=== PATIENT | male | born 1965 | race Caucasian/White ===

== ENCOUNTER 2022-08-20 12:28 | Inpatient (IN) | payer OTHER ==
[2022-08-20 13:43] VITALS: BMI 18.1
[2022-08-20] MEDS ORDERED: chlordiazePOXIDE HCL 25 MG CAPSULE PO ONE (15:10)
[2022-08-20] MEDS ORDERED: ACETAMINOPHEN 325 MG TABLET (FP) PO PRN (15:27)
[2022-08-20] MEDS ORDERED: NICOTINE POLACRILEX 2 MG GUM BUC PRN (15:27)
[2022-08-20] MEDS ORDERED: guaiFENesin 600 MG TABLET.ER (FP) PO PRN (15:27)
[2022-08-20] MEDS ORDERED: DICYCLOMINE HCL 10 MG CAPSULE PO PRN (15:27)
[2022-08-20] MEDS ORDERED: POLYETHYLENE GLYCOL (HEALTHYLAX) 3350 17 GM PACKET PO PRN (15:27)
[2022-08-20] MEDS ORDERED: MAG HYDROX/AL HYDROX/SIMETH 30 ML UNIT-DOSE CUP PO PRN (15:27)
[2022-08-20] MEDS ORDERED: BISMUTH SUBSALICYLATE 262 MG/15 ML BTL PO PRN (15:27)
[2022-08-20] MEDS ORDERED: BENZONATATE 200 MG CAPSULE PO PRN (15:27)
[2022-08-20] MEDS ORDERED: BENZOCAINE/MENTHOL (CHLORASEPTIC ) LOZENGE MM PRN (15:27)
[2022-08-20] MEDS ORDERED: LOPERAMIDE HCL 2 MG CAPSULE PO PRN (15:27)
[2022-08-20] MEDS ORDERED: MAGNESIUM HYDROX 2400MG/30ML ORAL SUSPENSION 30 ML CUP PO PRN (15:27)
[2022-08-20] MEDS ORDERED: IBUPROFEN 400 MG TABLET (FP) PO PRN (15:27)
[2022-08-20] MEDS ORDERED: ONDANSETRON *ODT* 4 MG TABLET SL PRN (15:27)
[2022-08-20] MEDS ORDERED: P-EPHED 60MG/TRIPROLIDI 2.5MG TABLET PO PRN (15:27)
[2022-08-20] MEDS: METHOCARBAMOL 500 MG TABLET PO PRN (16:27)
[2022-08-20] MEDS ORDERED: METHOCARBAMOL 500 MG TABLET ONE (16:32)
[2022-08-20] MEDS: chlordiazePOXIDE HCL 25 MG CAPSULE PO SCH ×2 (17:07→22:06)
[2022-08-20] MEDS: RAMIPRIL 5 MG CAPSULE PO SCH (17:46)
[2022-08-20] MEDS: NICOTINE 10 MG CARTRIDGE (INHALER) IH PRN (19:26)
[2022-08-20] MEDS: THIAMINE HCL 100 MG TABLET (FP) PO SCH (22:06)
[2022-08-20] MEDS: MELATONIN 5 MG TABLETS PO PRN (22:07)
[2022-08-21] MEDS: chlordiazePOXIDE HCL 25 MG CAPSULE PO SCH ×4 (05:50→22:06)
[2022-08-21] MEDS ORDERED: ALBUTEROL SO4 0.083% IH SOL 2.5 MG/3 ML VIAL.NEB. NEB PRN (09:11)
[2022-08-21] MEDS: IBUPROFEN 600 MG TABLET (FP) PO PRN (10:12)
[2022-08-21] MEDS: hydrOXYzine PAMOATE 25 MG CAPSULE (FP) PO PRN ×2 (10:12→19:45)
[2022-08-21] MEDS: METHOCARBAMOL 500 MG TABLET PO PRN (10:12)
[2022-08-21] MEDS: BUDESONIDE/FORMETEROL FUMARATE 160/4.5 mcg INHALER IH SCH ×2 (10:12→22:06)
[2022-08-21] MEDS: RAMIPRIL 5 MG CAPSULE PO SCH (10:12)
[2022-08-21] MEDS: PRENATAL VITAMINS W/ FOLIC ACID TABLET (FP) PO SCH (10:12)
[2022-08-21] MEDS: NICOTINE 7 MG/24 HOURS TOPICAL PATCH TD PRN (10:21)
[2022-08-21 12:01] LABS: HEMATOCRIT 37.7 % (35.4-49); HEMOGLOBIN 13.2 GM/dL (11.7-16.9); MCHC 35.1 g/dl (32.0-35.9); MEAN CELL VOLUME 91.1 fl (80-96); MEAN PLT VOLUME 7.6 fl (7.5-11.1); PLATELET COUNT 275 10^3/uL (134-434); RBC 4.13 M/mm3 (4.00-5.60); RDW 13.5 % (11.9-15.9); WHITE BLOOD COUNT 8.5 K/mm3 (4.0-10.0)
[2022-08-21 12:03] LABS: POTASSIUM 4.1 mmol/L (3.5-5.1)
[2022-08-21 12:06] LABS: CALCIUM 9.3 mg/dL (8.5-10.1)
[2022-08-21 12:07] LABS: ALBUMIN 3.6 g/dl (3.4-5.0); BLOOD UREA NITROGEN 6.9 mg/dL (7-18)
[2022-08-21 12:10] LABS: CREATININE 0.5 mg/dL (0.55-1.3)
[2022-08-21 12:11] LABS: TOT PROT 7.1 g/dl (6.4-8.2)
[2022-08-21 12:12] LABS: BILIRUBIN,TOTAL 0.8 mg/dL (0.2-1)
[2022-08-21] MEDS: ALBUTEROL SO4 HFA INHALER IH PRN (15:49)
[2022-08-21] MEDS: NICOTINE 10 MG CARTRIDGE (INHALER) IH PRN (18:33)
[2022-08-21] MEDS: chlordiazePOXIDE HCL 25 MG CAPSULE PO PRN (19:45)
[2022-08-21] MEDS: MONTELUKAST NA 10 MG TABLET PO SCH (22:05)
[2022-08-21] MEDS: THIAMINE HCL 100 MG TABLET (FP) PO SCH (22:05)
[2022-08-21] MEDS: MELATONIN 5 MG TABLETS PO PRN (22:06)
[2022-08-22] MEDS: chlordiazePOXIDE HCL 25 MG CAPSULE PO SCH ×4 (05:49→22:09)
[2022-08-22] MEDS: METHOCARBAMOL 500 MG TABLET PO PRN ×2 (10:07→22:08)
[2022-08-22] MEDS: hydrOXYzine PAMOATE 25 MG CAPSULE (FP) PO PRN (10:07)
[2022-08-22] MEDS: BUDESONIDE/FORMETEROL FUMARATE 160/4.5 mcg INHALER IH SCH ×2 (10:07→22:10)
[2022-08-22] MEDS: PRENATAL VITAMINS W/ FOLIC ACID TABLET (FP) PO SCH (10:07)
[2022-08-22] MEDS: RAMIPRIL 5 MG CAPSULE PO SCH (10:07)
[2022-08-22] MEDS: NICOTINE 10 MG CARTRIDGE (INHALER) IH PRN ×3 (12:45→22:08)
[2022-08-22] MEDS: chlordiazePOXIDE HCL 25 MG CAPSULE PO PRN (13:08)
[2022-08-22] MEDS ORDERED: ALBUTEROL SO4 2.5/IPRATROPIUM 0.5 INH SOL 3 ML VIAL.NEB. NEB PRN (15:02)
[2022-08-22] MEDS ORDERED: PNEUMOC 20-VAL CONJ-DIP CRM/PF 0.5 ML SYRINGE IM ONE (16:16)
[2022-08-22] MEDS: IBUPROFEN 600 MG TABLET (FP) PO PRN (18:13)
[2022-08-22] MEDS: THIAMINE HCL 100 MG TABLET (FP) PO SCH (22:08)
[2022-08-22] MEDS: MONTELUKAST NA 10 MG TABLET PO SCH (22:08)
[2022-08-22] MEDS: BACITRACIN 0.9 GM PACKET TP SCH (22:09)
[2022-08-22] MEDS: MELATONIN 5 MG TABLETS PO PRN (22:10)
[2022-08-22] MEDS: ERYTHROMYCIN BASE 250 MG TAB PO SCH (23:00)
[2022-08-23] MEDS: chlordiazePOXIDE HCL 10 MG CAPSULE PO SCH ×4 (05:51→22:02)
[2022-08-23] MEDS: BUDESONIDE/FORMETEROL FUMARATE 160/4.5 mcg INHALER IH SCH ×2 (10:53→22:03)
[2022-08-23] MEDS: BACITRACIN 0.9 GM PACKET TP SCH ×2 (10:53→22:02)
[2022-08-23] MEDS: PRENATAL VITAMINS W/ FOLIC ACID TABLET (FP) PO SCH (10:53)
[2022-08-23] MEDS: RAMIPRIL 5 MG CAPSULE PO SCH (10:54)
[2022-08-23] MEDS: ERYTHROMYCIN BASE 250 MG TAB PO SCH ×2 (10:54→22:06)
[2022-08-23] MEDS ORDERED: PNEUMOC 20-VAL CONJ-DIP CRM/PF 0.5 ML SYRINGE IM ONE (12:00)
[2022-08-23] MEDS: chlordiazePOXIDE HCL 10 MG CAPSULE PO PRN ×2 (12:33→19:08)
[2022-08-23] MEDS: NICOTINE 7 MG/24 HOURS TOPICAL PATCH TD PRN (13:23)
[2022-08-23] MEDS: NICOTINE 10 MG CARTRIDGE (INHALER) IH PRN ×2 (14:42→22:07)
[2022-08-23] MEDS: hydrOXYzine PAMOATE 25 MG CAPSULE (FP) PO PRN ×2 (14:45→22:51)
[2022-08-23] MEDS: METHOCARBAMOL 500 MG TABLET PO PRN (17:12)
[2022-08-23] MEDS: MONTELUKAST NA 10 MG TABLET PO SCH (22:02)
[2022-08-23] MEDS: THIAMINE HCL 100 MG TABLET (FP) PO SCH (22:02)
[2022-08-23] MEDS: MELATONIN 5 MG TABLETS PO PRN (22:03)
[2022-08-24] MEDS: chlordiazePOXIDE HCL 10 MG CAPSULE PO SCH ×2 (05:28→17:10)
[2022-08-24] MEDS: NICOTINE 10 MG CARTRIDGE (INHALER) IH PRN ×3 (09:14→22:06)
[2022-08-24] MEDS: BACITRACIN 0.9 GM PACKET TP SCH ×2 (11:23→22:05)
[2022-08-24] MEDS: METHOCARBAMOL 500 MG TABLET PO PRN (11:23)
[2022-08-24] MEDS: PRENATAL VITAMINS W/ FOLIC ACID TABLET (FP) PO SCH (11:23)
[2022-08-24] MEDS: ERYTHROMYCIN BASE 250 MG TAB PO SCH ×2 (11:23→22:59)
[2022-08-24] MEDS: hydrOXYzine PAMOATE 25 MG CAPSULE (FP) PO PRN ×2 (11:23→22:08)
[2022-08-24] MEDS: RAMIPRIL 5 MG CAPSULE PO SCH (11:24)
[2022-08-24] MEDS: BUDESONIDE/FORMETEROL FUMARATE 160/4.5 mcg INHALER IH SCH ×2 (11:24→22:06)
[2022-08-24] MEDS ORDERED: chlordiazePOXIDE HCL 25 MG CAPSULE PO ONE (12:36)
[2022-08-24] MEDS: ALBUTEROL SO4 HFA INHALER IH PRN (17:08)
[2022-08-24] MEDS: IBUPROFEN 600 MG TABLET (FP) PO PRN (20:34)
[2022-08-24 21:06] VITALS: RESP 18
[2022-08-24] MEDS: MONTELUKAST NA 10 MG TABLET PO SCH (22:05)
[2022-08-24] MEDS: THIAMINE HCL 100 MG TABLET (FP) PO SCH (22:05)
[2022-08-24] MEDS: MELATONIN 5 MG TABLETS PO PRN (22:08)
[2022-08-25] MEDS: METHOCARBAMOL 500 MG TABLET PO PRN (02:58)
[2022-08-25] MEDS ORDERED: chlordiazePOXIDE HCL 10 MG CAPSULE PO ONE (05:00)
[2022-08-25] MEDS: NICOTINE 10 MG CARTRIDGE (INHALER) IH PRN (08:55)
[2022-08-25 09:00] VITALS: BP 114/68; PULSE 84; TEMP 96.9
[2022-08-25] MEDS: PRENATAL VITAMINS W/ FOLIC ACID TABLET (FP) PO SCH (10:38)
[2022-08-25] MEDS: ERYTHROMYCIN BASE 250 MG TAB PO SCH (10:38)
[2022-08-25] MEDS: RAMIPRIL 5 MG CAPSULE PO SCH (10:38)
[2022-08-25] MEDS: BUDESONIDE/FORMETEROL FUMARATE 160/4.5 mcg INHALER IH SCH (10:38)
[2022-08-25] MEDS: BACITRACIN 0.9 GM PACKET TP SCH (10:38)
== END 2022-08-25 09:28 | disposition home or self-care (01) | DRG 774 ==
LOC: YASAS 12:28 → Y6N 15:41
PROVIDERS: ADMIT Allergy & Immunology; ATTEND Surgery
PROC: HZ2ZZZZ Detoxification Services for Substance Abuse Treatment (ICD-10-PCS; principal; 2022-08-20)
DX: F10.230 Alcohol dependence with withdrawal, uncomplicated (principal); F14.20 Cocaine dependence, uncomplicated; F12.20 Cannabis dependence, uncomplicated; F17.210 Nicotine dependence, cigarettes, uncomplicated; F19.280 Other psychoactive substance dependence with psychoactive substance-induced anxiety disorder; F19.282 Other psychoactive substance dependence with psychoactive substance-induced sleep disorder; J43.0 Unilateral pulmonary emphysema [MacLeod's syndrome]; J82.89 Other pulmonary eosinophilia, not elsewhere classified; I10 Essential (primary) hypertension; B35.1 Tinea unguium; Z88.0 Allergy status to penicillin
CPT/HCPCS: 36415; 80053; 85027; 86780; 87635; 90677; 94640

== ENCOUNTER 2022-09-07 18:08 | Inpatient (IN) | payer OTHER ==
[2022-09-07] MEDS ORDERED: ALBUTEROL SO4 2.5/IPRATROPIUM 0.5 INH SOL 3 ML VIAL.NEB. NEB ONE (18:22)
[2022-09-07 18:28] VITALS: BMI 18.8
[2022-09-07] MEDS ORDERED: IBUPROFEN 400 MG TABLET (FP) PO PRN (20:36)
[2022-09-07] MEDS ORDERED: BENZOCAINE/MENTHOL (CHLORASEPTIC ) LOZENGE MM PRN (20:36)
[2022-09-07] MEDS ORDERED: NALOXONE HCL (KLOXXADO) 8 MG SPRAY NS PRN (20:36)
[2022-09-07] MEDS ORDERED: DICYCLOMINE HCL 10 MG CAPSULE PO PRN (20:36)
[2022-09-07] MEDS ORDERED: ONDANSETRON *ODT* 4 MG TABLET SL PRN (20:36)
[2022-09-07] MEDS ORDERED: BENZONATATE 200 MG CAPSULE PO PRN (20:36)
[2022-09-07] MEDS ORDERED: BISMUTH SUBSALICYLATE 524 MG/30 ML PO PRN (20:36)
[2022-09-07] MEDS ORDERED: POLYETHYLENE GLYCOL (HEALTHYLAX) 3350 17 GM PACKET PO PRN (20:36)
[2022-09-07] MEDS ORDERED: NICOTINE 10 MG CARTRIDGE (INHALER) IH PRN (20:36)
[2022-09-07] MEDS ORDERED: LOPERAMIDE HCL 2 MG CAPSULE PO PRN (20:36)
[2022-09-07] MEDS ORDERED: ACETAMINOPHEN 325 MG TABLET (FP) PO PRN (20:36)
[2022-09-07] MEDS ORDERED: MAG HYDROX/AL HYDROX/SIMETH 30 ML UNIT-DOSE CUP PO PRN (20:36)
[2022-09-07] MEDS ORDERED: NALOXONE HCL 0.4 MG/ML VIAL IM PRN (20:36)
[2022-09-07] MEDS ORDERED: guaiFENesin 600 MG TABLET.ER (FP) PO PRN (20:36)
[2022-09-07] MEDS ORDERED: MAGNESIUM HYDROX 2400MG/30ML ORAL SUSPENSION 30 ML CUP PO PRN (20:36)
[2022-09-07] MEDS ORDERED: IBUPROFEN 600 MG TABLET (FP) PO ONE (21:08)
[2022-09-07] MEDS: IBUPROFEN 600 MG TABLET (FP) PO PRN (21:16)
[2022-09-07] MEDS ORDERED: chlordiazePOXIDE HCL 25 MG CAPSULE PO PRN (21:41)
[2022-09-07] MEDS: chlordiazePOXIDE HCL 25 MG CAPSULE PO SCH (22:26)
[2022-09-07] MEDS: METHOCARBAMOL 500 MG TABLET PO PRN (22:26)
[2022-09-07] MEDS: THIAMINE HCL 100 MG TABLET (FP) PO SCH (22:26)
[2022-09-07] MEDS: MELATONIN 5 MG TABLETS PO SCH (22:26)
[2022-09-08] MEDS: IBUPROFEN 600 MG TABLET (FP) PO PRN ×2 (03:58→17:26)
[2022-09-08] MEDS: chlordiazePOXIDE HCL 25 MG CAPSULE PO SCH ×4 (05:29→22:03)
[2022-09-08] MEDS: METHOCARBAMOL 500 MG TABLET PO PRN ×2 (05:30→13:40)
[2022-09-08] MEDS: PRENATAL VITAMINS W/ FOLIC ACID TABLET (FP) PO SCH (10:21)
[2022-09-08] MEDS: NICOTINE 21 MG/24 HOURS TOPICAL PATCH TD SCH (10:24)
[2022-09-08] MEDS: RAMIPRIL 5 MG CAPSULE PO SCH (11:07)
[2022-09-08] MEDS: BUDESONIDE/FORMETEROL FUMARATE 160/4.5 mcg INHALER IH SCH ×2 (12:13→22:04)
[2022-09-08] MEDS: ALBUTEROL SO4 HFA INHALER IH PRN (15:34)
[2022-09-08] MEDS ORDERED: LIDOCAINE VISCOUS 2% ORAL/TOP 100 ML BOTTLE MM PRN (19:39)
[2022-09-08] MEDS ORDERED: LIDOCAINE VISCOUS 2% ORAL/TOP 15 ML UNIT-DOSE CUP MM PRN (19:50)
[2022-09-08] MEDS ORDERED: BENZOCAINE 20 % GEL TUBE MM PRN (20:42)
[2022-09-08] MEDS ORDERED: ACETAMINOPHEN 500 MG TABLET (FP) PO ONE (20:44)
[2022-09-08] MEDS ORDERED: NAPROXEN 500 MG TABLET PO ONE ×2 (20:46→22:00)
[2022-09-08] MEDS ORDERED: MONTELUKAST NA 10 MG TABLET PO SCH (22:00)
[2022-09-08] MEDS: THIAMINE HCL 100 MG TABLET (FP) PO SCH (22:04)
[2022-09-08] MEDS: MELATONIN 5 MG TABLETS PO SCH (22:04)
[2022-09-08] MEDS ORDERED: NICOTINE POLACRILEX 2 MG GUM BUC PRN (23:36)
[2022-09-09] MEDS: chlordiazePOXIDE HCL 25 MG CAPSULE PO SCH ×2 (05:34→10:09)
[2022-09-09] MEDS: ALBUTEROL SO4 HFA INHALER IH PRN (07:48)
[2022-09-09 09:02] VITALS: BP 100/64; PULSE 70; RESP 17; TEMP 98.6
[2022-09-09] MEDS: NICOTINE 21 MG/24 HOURS TOPICAL PATCH TD SCH (10:08)
[2022-09-09] MEDS: RAMIPRIL 5 MG CAPSULE PO SCH (10:08)
[2022-09-09] MEDS: PRENATAL VITAMINS W/ FOLIC ACID TABLET (FP) PO SCH (10:08)
[2022-09-09] MEDS: BUDESONIDE/FORMETEROL FUMARATE 160/4.5 mcg INHALER IH SCH (10:09)
[2022-09-10] MEDS ORDERED: chlordiazePOXIDE HCL 10 MG CAPSULE PO PRN
[2022-09-10] MEDS ORDERED: chlordiazePOXIDE HCL 10 MG CAPSULE PO SCH (05:00)
[2022-09-11] MEDS ORDERED: chlordiazePOXIDE HCL 10 MG CAPSULE PO SCH (05:00)
[2022-09-12] MEDS ORDERED: chlordiazePOXIDE HCL 10 MG CAPSULE PO ONE (05:00)
== END 2022-09-09 12:42 | disposition left against medical advice (07) | DRG 770 ==
LOC: YASAS 18:08 → Y3N 21:10
PROVIDERS: ADMIT Allergy & Immunology; ATTEND Surgery
PROC: HZ2ZZZZ Detoxification Services for Substance Abuse Treatment (ICD-10-PCS; principal; 2022-09-07)
DX: F10.230 Alcohol dependence with withdrawal, uncomplicated (principal); F14.20 Cocaine dependence, uncomplicated; F12.20 Cannabis dependence, uncomplicated; F17.210 Nicotine dependence, cigarettes, uncomplicated; F19.24 Other psychoactive substance dependence with psychoactive substance-induced mood disorder; F31.9 Bipolar disorder, unspecified; I10 Essential (primary) hypertension; J43.0 Unilateral pulmonary emphysema [MacLeod's syndrome]; K08.89 Other specified disorders of teeth and supporting structures; Z91.148 Patient's other noncompliance with medication regimen for other reason; Z88.0 Allergy status to penicillin
CPT/HCPCS: 87811; 94640; Q0162

== ENCOUNTER 2022-12-29 09:44 | Inpatient (IN) | payer OTHER ==
[2022-12-29 10:20] VITALS: BMI 18.3
[2022-12-29] MEDS ORDERED: MAG HYDROX/AL HYDROX/SIMETH 30 ML UNIT-DOSE CUP PO PRN (10:55)
[2022-12-29] MEDS ORDERED: POLYETHYLENE GLYCOL (HEALTHYLAX) 3350 17 GM PACKET PO PRN (10:55)
[2022-12-29] MEDS ORDERED: NALOXONE HCL 0.4 MG/ML VIAL IM PRN (10:55)
[2022-12-29] MEDS ORDERED: MAGNESIUM HYDROX 2400MG/30ML ORAL SUSPENSION 30 ML CUP PO PRN (10:55)
[2022-12-29] MEDS ORDERED: NALOXONE HCL (KLOXXADO) 8 MG SPRAY NS PRN (10:55)
[2022-12-29] MEDS ORDERED: BENZOCAINE/MENTHOL (CHLORASEPTIC ) LOZENGE MM PRN (10:55)
[2022-12-29] MEDS ORDERED: BISMUTH SUBSALICYLATE 262 MG/15 ML BTL PO PRN (10:55)
[2022-12-29] MEDS ORDERED: BENZONATATE 200 MG CAPSULE PO PRN (10:55)
[2022-12-29] MEDS ORDERED: ONDANSETRON *ODT* 4 MG TABLET SL PRN (10:55)
[2022-12-29] MEDS ORDERED: LOPERAMIDE HCL 2 MG CAPSULE PO PRN (10:55)
[2022-12-29] MEDS ORDERED: guaiFENesin 600 MG TABLET.ER (FP) PO PRN (10:55)
[2022-12-29] MEDS ORDERED: ACETAMINOPHEN 325 MG TABLET (FP) PO PRN (10:55)
[2022-12-29] MEDS ORDERED: IBUPROFEN 400 MG TABLET (FP) PO PRN (10:55)
[2022-12-29] MEDS ORDERED: DICYCLOMINE HCL 10 MG CAPSULE PO PRN (10:55)
[2022-12-29] MEDS ORDERED: diazePAM 5 MG TABLET PO PRN ×2 (11:00→13:07)
[2022-12-29] MEDS ORDERED: diazePAM 5 MG TABLET PO SCH ×2 (11:00→17:00)
[2022-12-29] MEDS ORDERED: diazePAM 5 MG TABLET ONE (11:25)
[2022-12-29] MEDS: chlordiazePOXIDE HCL 25 MG CAPSULE PO PRN (13:30)
[2022-12-29] MEDS: NICOTINE 21 MG/24 HOURS TOPICAL PATCH TD SCH (13:39)
[2022-12-29] MEDS: chlordiazePOXIDE HCL 25 MG CAPSULE PO SCH ×2 (17:14→22:07)
[2022-12-29] MEDS: ALBUTEROL SO4 HFA INHALER IH PRN (20:20)
[2022-12-29] MEDS ORDERED: RAMIPRIL 5 MG CAPSULE PO ONE (20:57)
[2022-12-29] MEDS: MELATONIN 5 MG TABLETS PO SCH (22:05)
[2022-12-29] MEDS: MONTELUKAST NA 10 MG TABLET PO SCH (22:05)
[2022-12-29] MEDS: THIAMINE HCL 100 MG TABLET (FP) PO SCH (22:05)
[2022-12-29] MEDS: hydrOXYzine PAMOATE 25 MG CAPSULE (FP) PO PRN (22:05)
[2022-12-29] MEDS: BUDESONIDE/FORMETEROL FUMARATE 160/4.5 mcg INHALER IH SCH (22:47)
[2022-12-30] MEDS: chlordiazePOXIDE HCL 25 MG CAPSULE PO PRN ×3 (01:15→20:06)
[2022-12-30] MEDS: chlordiazePOXIDE HCL 25 MG CAPSULE PO SCH ×4 (05:35→22:25)
[2022-12-30] MEDS: hydrOXYzine PAMOATE 25 MG CAPSULE (FP) PO PRN ×3 (05:37→17:27)
[2022-12-30] MEDS ORDERED: NICOTINE 21 MG/24 HOURS TOPICAL PATCH TD SCH ×2 (10:00→13:45)
[2022-12-30] MEDS: BUDESONIDE/FORMETEROL FUMARATE 160/4.5 mcg INHALER IH SCH ×2 (10:26→22:50)
[2022-12-30] MEDS: PRENATAL VITAMINS W/ FOLIC ACID TABLET (FP) PO SCH (10:35)
[2022-12-30] MEDS: NICOTINE 21 MG/24 HOURS TOPICAL PATCH TD SCH (10:35)
[2022-12-30] MEDS: RAMIPRIL 5 MG CAPSULE PO SCH (10:35)
[2022-12-30 11:46] LABS: HEMATOCRIT 29.8 % (35.4-49); HEMOGLOBIN 10.1 GM/dL (11.7-16.9); MEAN CELL VOLUME 88.2 fl (80-96); MEAN PLT VOLUME 7.1 fl (7.5-11.1); PLATELET COUNT 459 10^3/uL (134-434); RBC 3.38 M/mm3 (4.00-5.60); RDW 14.1 % (11.9-15.9); WHITE BLOOD COUNT 9.2 K/mm3 (4.0-10.0)
[2022-12-30] MEDS ORDERED: FLU VACCINE (FLULAVAL) PF 60 MCG/0.5 ML SYRINGE 2023-2024 IM ONE (12:00)
[2022-12-30 12:17] LABS: ALBUMIN 3.3 g/dl (3.4-5.0)
[2022-12-30 12:19] LABS: CREATININE 0.7 mg/dL (0.55-1.3)
[2022-12-30 12:21] LABS: BILIRUBIN,TOTAL 0.2 mg/dL (0.2-1); TOT PROT 7.7 g/dl (6.4-8.2)
[2022-12-30] MEDS: ALBUTEROL SO4 HFA INHALER IH PRN ×2 (12:31→17:12)
[2022-12-30] MEDS: NICOTINE POLACRILEX 2 MG GUM BUC PRN (20:15)
[2022-12-30] MEDS: MELATONIN 5 MG TABLETS PO SCH (22:24)
[2022-12-30] MEDS: THIAMINE HCL 100 MG TABLET (FP) PO SCH (22:24)
[2022-12-30] MEDS: MONTELUKAST NA 10 MG TABLET PO SCH (22:24)
[2022-12-31] MEDS: ALBUTEROL SO4 HFA INHALER IH PRN (05:33)
[2022-12-31] MEDS: chlordiazePOXIDE HCL 25 MG CAPSULE PO SCH ×4 (05:33→22:21)
[2022-12-31] MEDS ORDERED: diazePAM 5 MG TABLET PO SCH ×2 (06:00)
[2022-12-31] MEDS: hydrOXYzine PAMOATE 25 MG CAPSULE (FP) PO PRN ×2 (06:13→17:21)
[2022-12-31] MEDS: IBUPROFEN 600 MG TABLET (FP) PO PRN ×2 (08:45→22:23)
[2022-12-31] MEDS: BUDESONIDE/FORMETEROL FUMARATE 160/4.5 mcg INHALER IH SCH ×2 (10:05→23:08)
[2022-12-31] MEDS: RAMIPRIL 5 MG CAPSULE PO SCH (10:07)
[2022-12-31] MEDS: PRENATAL VITAMINS W/ FOLIC ACID TABLET (FP) PO SCH (10:07)
[2022-12-31] MEDS: NICOTINE 21 MG/24 HOURS TOPICAL PATCH TD SCH (10:47)
[2022-12-31] MEDS: chlordiazePOXIDE HCL 25 MG CAPSULE PO PRN (13:12)
[2022-12-31] MEDS: MONTELUKAST NA 10 MG TABLET PO SCH (22:22)
[2022-12-31] MEDS: MELATONIN 5 MG TABLETS PO SCH (22:22)
[2022-12-31] MEDS: THIAMINE HCL 100 MG TABLET (FP) PO SCH (22:22)
[2023-01-01] MEDS: chlordiazePOXIDE HCL 10 MG CAPSULE PO PRN ×3 (00:55→20:34)
[2023-01-01] MEDS: chlordiazePOXIDE HCL 10 MG CAPSULE PO SCH ×4 (05:41→22:22)
[2023-01-01] MEDS ORDERED: diazePAM 5 MG TABLET PO SCH ×2 (06:00)
[2023-01-01] MEDS: ALBUTEROL SO4 HFA INHALER IH PRN ×2 (09:16→17:26)
[2023-01-01] MEDS: PRENATAL VITAMINS W/ FOLIC ACID TABLET (FP) PO SCH (10:32)
[2023-01-01] MEDS: NICOTINE 21 MG/24 HOURS TOPICAL PATCH TD SCH (10:33)
[2023-01-01] MEDS: BUDESONIDE/FORMETEROL FUMARATE 160/4.5 mcg INHALER IH SCH ×2 (10:33→22:21)
[2023-01-01] MEDS: RAMIPRIL 5 MG CAPSULE PO SCH (10:33)
[2023-01-01] MEDS: FERROUS SO4 325 MG TABLET (FP) PO SCH (12:55)
[2023-01-01] MEDS: hydrOXYzine PAMOATE 25 MG CAPSULE (FP) PO PRN (17:25)
[2023-01-01] MEDS: IBUPROFEN 600 MG TABLET (FP) PO PRN (20:26)
[2023-01-01] MEDS: MONTELUKAST NA 10 MG TABLET PO SCH (22:21)
[2023-01-01] MEDS: THIAMINE HCL 100 MG TABLET (FP) PO SCH (22:21)
[2023-01-01] MEDS: MELATONIN 5 MG TABLETS PO SCH (22:21)
[2023-01-01] MEDS: levETIRAcetam 500 MG TABLET (FP) PO SCH (22:21)
[2023-01-02] MEDS: chlordiazePOXIDE HCL 10 MG CAPSULE PO SCH ×2 (05:40→17:23)
[2023-01-02] MEDS: hydrOXYzine PAMOATE 25 MG CAPSULE (FP) PO PRN ×2 (05:42→17:24)
[2023-01-02] MEDS ORDERED: diazePAM 5 MG TABLET PO ONE ×2 (06:00)
[2023-01-02] MEDS: FERROUS SO4 325 MG TABLET (FP) PO SCH (08:06)
[2023-01-02] MEDS: BUDESONIDE/FORMETEROL FUMARATE 160/4.5 mcg INHALER IH SCH ×2 (10:50→22:09)
[2023-01-02] MEDS: RAMIPRIL 5 MG CAPSULE PO SCH (10:51)
[2023-01-02] MEDS: levETIRAcetam 500 MG TABLET (FP) PO SCH ×2 (10:51→22:05)
[2023-01-02] MEDS: PRENATAL VITAMINS W/ FOLIC ACID TABLET (FP) PO SCH (10:51)
[2023-01-02] MEDS: NICOTINE 21 MG/24 HOURS TOPICAL PATCH TD SCH (10:51)
[2023-01-02] MEDS ORDERED: LORazepam 2 MG/ML SDV VIAL IM ONE (11:00)
[2023-01-02] MEDS: chlordiazePOXIDE HCL 10 MG CAPSULE PO PRN (15:45)
[2023-01-02] MEDS: ALBUTEROL SO4 HFA INHALER IH PRN (18:35)
[2023-01-02] MEDS: THIAMINE HCL 100 MG TABLET (FP) PO SCH (22:05)
[2023-01-02] MEDS: MONTELUKAST NA 10 MG TABLET PO SCH (22:05)
[2023-01-02] MEDS: MELATONIN 5 MG TABLETS PO SCH (22:05)
[2023-01-02] MEDS: IBUPROFEN 600 MG TABLET (FP) PO PRN (22:07)
[2023-01-03] MEDS: chlordiazePOXIDE HCL 10 MG CAPSULE PO PRN (01:08)
[2023-01-03] MEDS: chlordiazePOXIDE HCL 10 MG CAPSULE PO SCH (05:15)
[2023-01-03 06:01] VITALS: TEMP 97.7
[2023-01-03] MEDS: FERROUS SO4 325 MG TABLET (FP) PO SCH (07:01)
[2023-01-03] MEDS: NICOTINE POLACRILEX 2 MG GUM BUC PRN (07:36)
[2023-01-03] MEDS: ALBUTEROL SO4 HFA INHALER IH PRN (07:36)
[2023-01-03 08:53] VITALS: BP 118/66; PULSE 64; RESP 18
[2023-01-03] MEDS: levETIRAcetam 500 MG TABLET (FP) PO SCH (10:38)
[2023-01-03] MEDS: PRENATAL VITAMINS W/ FOLIC ACID TABLET (FP) PO SCH (10:38)
[2023-01-03] MEDS: RAMIPRIL 5 MG CAPSULE PO SCH (10:38)
[2023-01-03] MEDS: BUDESONIDE/FORMETEROL FUMARATE 160/4.5 mcg INHALER IH SCH (10:38)
[2023-01-03] MEDS: NICOTINE 21 MG/24 HOURS TOPICAL PATCH TD SCH (10:39)
[2023-01-04] MEDS ORDERED: chlordiazePOXIDE HCL 10 MG CAPSULE PO ONE (05:00)
== END 2023-01-03 12:49 | disposition home or self-care (01) | DRG 774 ==
LOC: YASAS 09:44 → Y3N 12:05
PROVIDERS: ADMIT Allergy & Immunology; ATTEND Psychiatry & Neurology Pain Medicine
PROC: HZ2ZZZZ Detoxification Services for Substance Abuse Treatment (ICD-10-PCS; principal; 2022-12-29)
DX: F10.230 Alcohol dependence with withdrawal, uncomplicated (principal); F14.20 Cocaine dependence, uncomplicated; F17.210 Nicotine dependence, cigarettes, uncomplicated; F19.24 Other psychoactive substance dependence with psychoactive substance-induced mood disorder; I10 Essential (primary) hypertension; J43.0 Unilateral pulmonary emphysema [MacLeod's syndrome]; D64.9 Anemia, unspecified; R25.3 Fasciculation; Z88.6 Allergy status to analgesic agent; Z86.59 Personal history of other mental and behavioral disorders; Z88.0 Allergy status to penicillin
CPT/HCPCS: 36415; 80053; 80307; 85027; 86780; 87635; 87811; 90686; 93005; 93010; G0008; Q0162

== ENCOUNTER 2023-02-13 21:42 | Inpatient (IN) | payer OTHER ==
[2023-02-13 22:12] VITALS: BMI 20.9
[2023-02-13] MEDS ORDERED: MAGNESIUM HYDROX 2400MG/30ML ORAL SUSPENSION 30 ML CUP PO PRN (23:09)
[2023-02-13] MEDS ORDERED: MAG HYDROX/AL HYDROX/SIMETH 30 ML UNIT-DOSE CUP PO PRN (23:09)
[2023-02-13] MEDS ORDERED: DICYCLOMINE HCL 10 MG CAPSULE PO PRN (23:09)
[2023-02-13] MEDS ORDERED: guaiFENesin 600 MG TABLET.ER (FP) PO PRN (23:09)
[2023-02-13] MEDS ORDERED: NICOTINE POLACRILEX 2 MG GUM BUC PRN (23:09)
[2023-02-13] MEDS ORDERED: ONDANSETRON *ODT* 4 MG TABLET SL PRN (23:09)
[2023-02-13] MEDS ORDERED: NALOXONE HCL 0.4 MG/ML VIAL IM PRN (23:09)
[2023-02-13] MEDS ORDERED: NALOXONE HCL (KLOXXADO) 8 MG SPRAY NS PRN (23:09)
[2023-02-13] MEDS ORDERED: BENZOCAINE/MENTHOL (CHLORASEPTIC ) LOZENGE MM PRN (23:09)
[2023-02-13] MEDS ORDERED: BENZONATATE 200 MG CAPSULE PO PRN (23:09)
[2023-02-13] MEDS ORDERED: ACETAMINOPHEN 325 MG TABLET (FP) PO PRN (23:09)
[2023-02-13] MEDS ORDERED: IBUPROFEN 400 MG TABLET (FP) PO PRN (23:09)
[2023-02-13] MEDS ORDERED: POLYETHYLENE GLYCOL (HEALTHYLAX) 3350 17 GM PACKET PO PRN (23:09)
[2023-02-13] MEDS ORDERED: LOPERAMIDE HCL 2 MG CAPSULE PO PRN (23:09)
[2023-02-14] MEDS: chlordiazePOXIDE HCL 25 MG CAPSULE PO SCH ×5 (00:37→22:02)
[2023-02-14] MEDS ORDERED: chlordiazePOXIDE HCL 25 MG CAPSULE ONE (00:37)
[2023-02-14] MEDS: hydrOXYzine PAMOATE 25 MG CAPSULE (FP) PO PRN ×2 (07:04→22:02)
[2023-02-14] MEDS: METHOCARBAMOL 500 MG TABLET PO PRN ×2 (07:06→22:02)
[2023-02-14] MEDS: BUDESONIDE/FORMETEROL FUMARATE 160/4.5 mcg INHALER IH SCH ×2 (10:00→22:04)
[2023-02-14] MEDS: NICOTINE 21 MG/24 HOURS TOPICAL PATCH TD SCH (10:01)
[2023-02-14] MEDS: PRENATAL VITAMINS W/ FOLIC ACID TABLET (FP) PO SCH (10:01)
[2023-02-14] MEDS: IBUPROFEN 600 MG TABLET (FP) PO PRN ×2 (10:02→17:15)
[2023-02-14] MEDS: RAMIPRIL 5 MG CAPSULE PO SCH (10:55)
[2023-02-14 12:39] LABS: HEMATOCRIT 31.7 % (35.4-49); HEMOGLOBIN 10.1 GM/dL (11.7-16.9); MCH 26.4 pg (25.7-33.7); MCHC 31.7 g/dl (32.0-35.9); MEAN CELL VOLUME 83.3 fl (80-96); MEAN PLT VOLUME 6.8 fl (7.5-11.1); PLATELET COUNT 524 10^3/uL (134-434); RDW 15.8 % (11.9-15.9); WHITE BLOOD COUNT 12.4 K/mm3 (4.0-10.0)
[2023-02-14 13:48] LABS: CHLORIDE 98 mmol/L (98-107); SODIUM 133 mmol/L (136-145)
[2023-02-14 13:49] LABS: CALCIUM 9.2 mg/dL (8.5-10.1)
[2023-02-14 13:51] LABS: ALBUMIN 3.6 g/dl (3.4-5.0); ANION GAP 8 mmol/L (4-13); BLOOD UREA NITROGEN 10.6 mg/dL (7-18); CO2 27 mmol/L (21-32); GLUCOSE,RANDOM 111 mg/dL (74-106)
[2023-02-14 13:53] LABS: SGOT/AST 21 U/L (15-37); SGPT/ALT 22 U/L (13-61)
[2023-02-14 13:55] LABS: BILIRUBIN,TOTAL 0.7 mg/dL (0.2-1)
[2023-02-14 13:57] LABS: ALK PHOS 97 U/L (45-117); TOT PROT 8.1 g/dl (6.4-8.2)
[2023-02-14 14:00] LABS: CREATININE 0.7 mg/dL (0.55-1.3)
[2023-02-14] MEDS: chlordiazePOXIDE HCL 25 MG CAPSULE PO PRN (14:35)
[2023-02-14] MEDS: BISMUTH SUBSALICYLATE 524 MG/30 ML PO PRN (15:39)
[2023-02-14] MEDS: ALBUTEROL SO4 HFA INHALER IH PRN (16:40)
[2023-02-14] MEDS: MELATONIN 5 MG TABLETS PO SCH (22:02)
[2023-02-14] MEDS: THIAMINE HCL 100 MG TABLET (FP) PO SCH (22:02)
[2023-02-14] MEDS: MONTELUKAST NA 10 MG TABLET PO SCH (22:06)
[2023-02-15] MEDS: chlordiazePOXIDE HCL 25 MG CAPSULE PO PRN ×2 (02:03→13:29)
[2023-02-15] MEDS: chlordiazePOXIDE HCL 25 MG CAPSULE PO SCH ×4 (05:21→22:12)
[2023-02-15] MEDS: METHOCARBAMOL 500 MG TABLET PO PRN ×2 (05:23→17:14)
[2023-02-15] MEDS: hydrOXYzine PAMOATE 25 MG CAPSULE (FP) PO PRN ×2 (05:23→17:14)
[2023-02-15] MEDS: NICOTINE 21 MG/24 HOURS TOPICAL PATCH TD SCH (10:02)
[2023-02-15] MEDS: RAMIPRIL 5 MG CAPSULE PO SCH (10:02)
[2023-02-15] MEDS: BUDESONIDE/FORMETEROL FUMARATE 160/4.5 mcg INHALER IH SCH ×2 (10:02→22:09)
[2023-02-15] MEDS: PRENATAL VITAMINS W/ FOLIC ACID TABLET (FP) PO SCH (10:03)
[2023-02-15] MEDS: IBUPROFEN 600 MG TABLET (FP) PO PRN ×2 (11:50→22:10)
[2023-02-15] MEDS: THIAMINE HCL 100 MG TABLET (FP) PO SCH (22:09)
[2023-02-15] MEDS: MONTELUKAST NA 10 MG TABLET PO SCH (22:09)
[2023-02-15] MEDS: MELATONIN 5 MG TABLETS PO SCH (22:09)
[2023-02-16] MEDS ORDERED: chlordiazePOXIDE HCL 10 MG CAPSULE PO PRN
[2023-02-16] MEDS: chlordiazePOXIDE HCL 10 MG CAPSULE PO SCH ×2 (05:13→10:12)
[2023-02-16] MEDS: METHOCARBAMOL 500 MG TABLET PO PRN ×2 (05:16→17:49)
[2023-02-16] MEDS: NICOTINE 21 MG/24 HOURS TOPICAL PATCH TD SCH (10:12)
[2023-02-16] MEDS: RAMIPRIL 5 MG CAPSULE PO SCH (10:12)
[2023-02-16] MEDS: BUDESONIDE/FORMETEROL FUMARATE 160/4.5 mcg INHALER IH SCH ×2 (10:12→21:58)
[2023-02-16] MEDS: PRENATAL VITAMINS W/ FOLIC ACID TABLET (FP) PO SCH (10:12)
[2023-02-16] MEDS: hydrOXYzine PAMOATE 25 MG CAPSULE (FP) PO PRN ×2 (10:14→17:49)
[2023-02-16] MEDS: IBUPROFEN 600 MG TABLET (FP) PO PRN (10:15)
[2023-02-16] MEDS: BISMUTH SUBSALICYLATE 524 MG/30 ML PO PRN ×2 (14:24→20:47)
[2023-02-16] MEDS: diazePAM 5 MG TABLET PO SCH ×2 (14:25→21:59)
[2023-02-16] MEDS: ALBUTEROL SO4 HFA INHALER IH PRN (16:27)
[2023-02-16] MEDS: MELATONIN 5 MG TABLETS PO SCH (21:58)
[2023-02-16] MEDS: THIAMINE HCL 100 MG TABLET (FP) PO SCH (21:58)
[2023-02-16] MEDS: MONTELUKAST NA 10 MG TABLET PO SCH (21:59)
[2023-02-17] MEDS: METHOCARBAMOL 500 MG TABLET PO PRN (03:06)
[2023-02-17] MEDS: hydrOXYzine PAMOATE 25 MG CAPSULE (FP) PO PRN (03:06)
[2023-02-17] MEDS ORDERED: chlordiazePOXIDE HCL 10 MG CAPSULE PO SCH (05:00)
[2023-02-17] MEDS: diazePAM 5 MG TABLET PO SCH ×2 (05:23→17:40)
[2023-02-17] MEDS: ALBUTEROL SO4 HFA INHALER IH PRN ×2 (08:33→15:25)
[2023-02-17] MEDS: NICOTINE 21 MG/24 HOURS TOPICAL PATCH TD SCH (10:16)
[2023-02-17] MEDS: PRENATAL VITAMINS W/ FOLIC ACID TABLET (FP) PO SCH (10:16)
[2023-02-17] MEDS: BUDESONIDE/FORMETEROL FUMARATE 160/4.5 mcg INHALER IH SCH ×2 (10:16→22:35)
[2023-02-17] MEDS: RAMIPRIL 5 MG CAPSULE PO SCH (10:17)
[2023-02-17] MEDS: diazePAM 5 MG TABLET PO PRN ×3 (10:20→22:36)
[2023-02-17 18:23] VITALS: RESP 18
[2023-02-17] MEDS ORDERED: SUVOREXANT 10 MG TABLET PO PRN (22:00)
[2023-02-17] MEDS: THIAMINE HCL 100 MG TABLET (FP) PO SCH (22:35)
[2023-02-17] MEDS: MONTELUKAST NA 10 MG TABLET PO SCH (22:36)
[2023-02-18] MEDS: ALBUTEROL SO4 HFA INHALER IH PRN (01:16)
[2023-02-18] MEDS: diazePAM 5 MG TABLET PO PRN (02:39)
[2023-02-18] MEDS ORDERED: chlordiazePOXIDE HCL 10 MG CAPSULE PO ONE (05:00)
[2023-02-18] MEDS: diazePAM 5 MG TABLET PO SCH (05:40)
[2023-02-18 09:10] VITALS: BP 116/69; PULSE 113; TEMP 98.1
[2023-02-18] MEDS: RAMIPRIL 5 MG CAPSULE PO SCH (09:57)
[2023-02-18] MEDS: PRENATAL VITAMINS W/ FOLIC ACID TABLET (FP) PO SCH (09:58)
[2023-02-18] MEDS: BUDESONIDE/FORMETEROL FUMARATE 160/4.5 mcg INHALER IH SCH (09:58)
[2023-02-18] MEDS: NICOTINE 21 MG/24 HOURS TOPICAL PATCH TD SCH (09:58)
[2023-02-18] MEDS ORDERED: diazePAM 5 MG TABLET PO ONE (18:00)
== END 2023-02-18 10:28 | disposition home or self-care (01) | DRG 774 ==
LOC: YASAS 21:42 → Y3N 02-14 02:07
PROVIDERS: ADMIT Allergy & Immunology; ATTEND Surgery
PROC: HZ2ZZZZ Detoxification Services for Substance Abuse Treatment (ICD-10-PCS; principal; 2023-02-14)
DX: F10.230 Alcohol dependence with withdrawal, uncomplicated (principal); F14.20 Cocaine dependence, uncomplicated; F12.20 Cannabis dependence, uncomplicated; F17.210 Nicotine dependence, cigarettes, uncomplicated; F19.282 Other psychoactive substance dependence with psychoactive substance-induced sleep disorder; F19.24 Other psychoactive substance dependence with psychoactive substance-induced mood disorder; F31.9 Bipolar disorder, unspecified; I10 Essential (primary) hypertension; J43.9 Emphysema, unspecified; J45.20 Mild intermittent asthma, uncomplicated; Z88.0 Allergy status to penicillin
CPT/HCPCS: 36415; 80053; 80307; 85027; 86780; 87635

== ENCOUNTER 2023-06-09 20:16 | Inpatient (IN) | payer OTHER ==
[2023-06-09 20:56] VITALS: BMI 18.8
[2023-06-09] MEDS ORDERED: ACETAMINOPHEN 325 MG TABLET (FP) PO PRN (21:40)
[2023-06-09] MEDS ORDERED: ONDANSETRON *ODT* 4 MG TABLET SL PRN (21:40)
[2023-06-09] MEDS ORDERED: IBUPROFEN 400 MG TABLET (FP) PO PRN (21:40)
[2023-06-09] MEDS ORDERED: DICYCLOMINE HCL 10 MG CAPSULE PO PRN (21:40)
[2023-06-09] MEDS ORDERED: IBUPROFEN 600 MG TABLET (FP) PO PRN (21:40)
[2023-06-09] MEDS ORDERED: POLYETHYLENE GLYCOL (HEALTHYLAX) 3350 17 GM PACKET PO PRN (21:40)
[2023-06-09] MEDS ORDERED: BENZONATATE 200 MG CAPSULE PO PRN (21:40)
[2023-06-09] MEDS ORDERED: guaiFENesin 600 MG TABLET.ER (FP) PO PRN (21:40)
[2023-06-09] MEDS ORDERED: MAG HYDROX/AL HYDROX/SIMETH 30 ML UNIT-DOSE CUP PO PRN (21:40)
[2023-06-09] MEDS ORDERED: LOPERAMIDE HCL 2 MG CAPSULE PO PRN (21:40)
[2023-06-09] MEDS ORDERED: MAGNESIUM HYDROX 2400MG/30ML ORAL SUSPENSION 30 ML CUP PO PRN (21:40)
[2023-06-09] MEDS ORDERED: BENZOCAINE/MENTHOL (CHLORASEPTIC ) LOZENGE MM PRN (21:40)
[2023-06-09] MEDS ORDERED: chlordiazePOXIDE HCL 25 MG CAPSULE ONE (22:41)
[2023-06-09] MEDS: chlordiazePOXIDE HCL 25 MG CAPSULE PO SCH (22:42)
[2023-06-09] MEDS: MELATONIN 5 MG TABLETS PO SCH (23:36)
[2023-06-09] MEDS: THIAMINE HCL 100 MG TABLET (FP) PO SCH (23:37)
[2023-06-09] MEDS: levETIRAcetam 500 MG TABLET (FP) PO SCH (23:38)
[2023-06-09] MEDS: MONTELUKAST NA 10 MG TABLET PO SCH (23:38)
[2023-06-09] MEDS: NAPROXEN 500 MG TABLET PO SCH (23:38)
[2023-06-09] MEDS: METHOCARBAMOL 500 MG TABLET PO PRN (23:39)
[2023-06-09] MEDS: BUDESONIDE/FORMETEROL FUMARATE 160/4.5 mcg INHALER IH SCH (23:42)
[2023-06-10] MEDS: hydrOXYzine PAMOATE 25 MG CAPSULE (FP) PO PRN (03:07)
[2023-06-10] MEDS: chlordiazePOXIDE HCL 25 MG CAPSULE PO PRN (03:08)
[2023-06-10] MEDS: ALBUTEROL SO4 HFA INHALER IH PRN (08:50)
[2023-06-10] MEDS: PRENATAL VITAMINS W/ FOLIC ACID TABLET (FP) PO SCH (10:50)
[2023-06-10] MEDS: RAMIPRIL 5 MG CAPSULE PO SCH (10:51)
[2023-06-10] MEDS: NICOTINE POLACRILEX 2 MG LOZENGE BC PRN (10:54)
[2023-06-10 12:14] LABS: POTASSIUM 3.9 mmol/L (3.5-5.1)
[2023-06-10] MEDS: FAMOTIDINE 20 MG TABLET PO SCH (12:15)
[2023-06-10 12:20] LABS: CALCIUM 9.3 mg/dL (8.5-10.1)
[2023-06-10 12:22] LABS: BLOOD UREA NITROGEN 10.2 mg/dL (7-18)
[2023-06-10 12:23] LABS: CREATININE 0.7 mg/dL (0.55-1.3)
[2023-06-10 12:25] LABS: BILIRUBIN,TOTAL 0.8 mg/dL (0.2-1); TOT PROT 7.5 g/dl (6.4-8.2)
[2023-06-10 12:30] LABS: HEMATOCRIT 33.9 % (35.4-49); HEMOGLOBIN 11.3 GM/dL (11.7-16.9); MCH 27.6 pg (25.7-33.7); MCHC 33.3 g/dl (32.0-35.9); MEAN PLT VOLUME 7.6 fl (7.5-11.1); PLATELET COUNT 311 10^3/uL (134-434); RBC 4.08 M/mm3 (4.00-5.60); RDW 16.9 % (11.9-15.9)
[2023-06-10] MEDS: NICOTINE 21 MG/24 HOURS TOPICAL PATCH TD SCH (13:46)
[2023-06-10] MEDS: NICOTINE POLACRILEX 2 MG GUM BUC PRN (17:16)
[2023-06-11] MEDS: chlordiazePOXIDE HCL 25 MG CAPSULE PO SCH (05:33)
[2023-06-11] MEDS: BISMUTH SUBSALICYLATE 524 MG/30 ML PO PRN (13:58)
[2023-06-12] MEDS: chlordiazePOXIDE HCL 10 MG CAPSULE PO PRN (01:29)
[2023-06-12] MEDS: chlordiazePOXIDE HCL 10 MG CAPSULE PO SCH (05:30)
[2023-06-12] MEDS: METHOCARBAMOL 500 MG TABLET PO PRN (17:24)
[2023-06-12] MEDS: MELATONIN 5 MG TABLETS PO SCH (22:02)
[2023-06-13] MEDS: chlordiazePOXIDE HCL 10 MG CAPSULE PO SCH (05:42)
[2023-06-13] MEDS: ALBUTEROL SO4 HFA INHALER IH PRN (08:00)
[2023-06-13 11:33] VITALS: BP 126/75; PULSE 94; RESP 18; TEMP 98.6
[2023-06-14] MEDS ORDERED: chlordiazePOXIDE HCL 10 MG CAPSULE PO ONE (05:00)
== END 2023-06-13 11:43 | disposition home or self-care (01) | DRG 774 ==
LOC: YASAS 20:16 → Y3N 22:36
PROVIDERS: ADMIT Allergy & Immunology; ATTEND Surgery
PROC: HZ2ZZZZ Detoxification Services for Substance Abuse Treatment (ICD-10-PCS; principal; 2023-06-09)
DX: F10.230 Alcohol dependence with withdrawal, uncomplicated (principal); F14.20 Cocaine dependence, uncomplicated; F12.20 Cannabis dependence, uncomplicated; F17.210 Nicotine dependence, cigarettes, uncomplicated; F31.9 Bipolar disorder, unspecified; G47.00 Insomnia, unspecified; I10 Essential (primary) hypertension; J43.9 Emphysema, unspecified; Z88.0 Allergy status to penicillin
CPT/HCPCS: 36415; 80053; 80305; 80307; 85027; 86780; 93005; 93010

== ENCOUNTER 2023-08-11 04:21 | Inpatient (IN) | payer OTHER ==
[2023-08-11 04:40] VITALS: BMI 19.5
[2023-08-11] MEDS ORDERED: NALOXONE HCL 0.4 MG/ML VIAL IM PRN (04:53)
[2023-08-11] MEDS ORDERED: guaiFENesin 600 MG TABLET.ER (FP) PO PRN (04:53)
[2023-08-11] MEDS ORDERED: MAGNESIUM HYDROX 2400MG/30ML ORAL SUSPENSION 30 ML CUP PO PRN (04:53)
[2023-08-11] MEDS ORDERED: BENZONATATE 200 MG CAPSULE PO PRN (04:53)
[2023-08-11] MEDS ORDERED: DICYCLOMINE HCL 10 MG CAPSULE PO PRN (04:53)
[2023-08-11] MEDS ORDERED: NALOXONE HCL (KLOXXADO) 8 MG SPRAY NS PRN (04:53)
[2023-08-11] MEDS ORDERED: MAG HYDROX/AL HYDROX/SIMETH 30 ML UNIT-DOSE CUP PO PRN (04:53)
[2023-08-11] MEDS ORDERED: IBUPROFEN 400 MG TABLET (FP) PO PRN (04:53)
[2023-08-11] MEDS ORDERED: BISMUTH SUBSALICYLATE 524 MG/30 ML PO PRN (04:53)
[2023-08-11] MEDS ORDERED: POLYETHYLENE GLYCOL (HEALTHYLAX) 3350 17 GM PACKET PO PRN (04:53)
[2023-08-11] MEDS ORDERED: ACETAMINOPHEN 325 MG TABLET (FP) PO PRN (04:53)
[2023-08-11] MEDS ORDERED: LOPERAMIDE HCL 2 MG CAPSULE PO PRN (04:53)
[2023-08-11] MEDS ORDERED: BENZOCAINE/MENTHOL (CHLORASEPTIC ) LOZENGE MM PRN (04:53)
[2023-08-11] MEDS: chlordiazePOXIDE HCL 25 MG CAPSULE PO SCH (05:45)
[2023-08-11] MEDS: PRENATAL VITAMINS W/ FOLIC ACID TABLET (FP) PO SCH (10:08)
[2023-08-11] MEDS: levETIRAcetam 250 MG TABLET PO SCH (10:08)
[2023-08-11] MEDS: BUDESONIDE/FORMETEROL FUMARATE 160/4.5 mcg INHALER IH SCH (10:09)
[2023-08-11] MEDS: NICOTINE 21 MG/24 HOURS TOPICAL PATCH TD SCH (10:09)
[2023-08-11] MEDS: hydrOXYzine PAMOATE 25 MG CAPSULE (FP) PO PRN (10:10)
[2023-08-11] MEDS: RAMIPRIL 5 MG CAPSULE PO SCH (11:28)
[2023-08-11 11:51] LABS: POTASSIUM 4.2 mmol/L (3.5-5.1)
[2023-08-11 11:52] LABS: HEMATOCRIT 32.1 % (35.4-49); HEMOGLOBIN 11.1 GM/dL (11.7-16.9); MCH 29.2 pg (25.7-33.7); MCHC 34.7 g/dl (32.0-35.9); MEAN CELL VOLUME 84.1 fl (80-96); MEAN PLT VOLUME 7.3 fl (7.5-11.1); PLATELET COUNT 336 10^3/uL (134-434); RBC 3.82 M/mm3 (4.00-5.60); RDW 16.8 % (11.9-15.9); WHITE BLOOD COUNT 7.6 K/mm3 (4.0-10.0)
[2023-08-11 11:57] LABS: ALBUMIN 3.8 g/dl (3.4-5.0)
[2023-08-11 11:58] LABS: BLOOD UREA NITROGEN 5.4 mg/dL (7-18); CALCIUM 8.9 mg/dL (8.5-10.1)
[2023-08-11 12:00] LABS: BILIRUBIN,TOTAL 0.4 mg/dL (0.2-1); CREATININE 0.5 mg/dL (0.55-1.3)
[2023-08-11 12:02] LABS: TOT PROT 7.5 g/dl (6.4-8.2)
[2023-08-11] MEDS: chlordiazePOXIDE HCL 25 MG CAPSULE PO PRN (13:47)
[2023-08-11] MEDS: IBUPROFEN 600 MG TABLET (FP) PO PRN (13:48)
[2023-08-11] MEDS: ONDANSETRON *ODT* 4 MG TABLET SL PRN (13:50)
[2023-08-11] MEDS: NICOTINE POLACRILEX 4 MG GUM BUC PRN (17:41)
[2023-08-11] MEDS: QUEtiapine FUMARATE 25 MG TABLET PO SCH (22:10)
[2023-08-11] MEDS: MELATONIN 5 MG TABLETS PO SCH (22:10)
[2023-08-11] MEDS: THIAMINE 100 MG TABLET PO SCH (22:10)
[2023-08-11] MEDS: MONTELUKAST NA 10 MG TABLET PO SCH (22:10)
[2023-08-12] MEDS: METHOCARBAMOL 500 MG TABLET PO PRN (04:48)
[2023-08-12] MEDS: chlordiazePOXIDE HCL 25 MG CAPSULE PO SCH (04:49)
[2023-08-12] MEDS: ALBUTEROL SO4 HFA INHALER IH PRN (13:06)
[2023-08-13] MEDS: chlordiazePOXIDE HCL 10 MG CAPSULE PO PRN (01:31)
[2023-08-13] MEDS: chlordiazePOXIDE HCL 10 MG CAPSULE PO SCH (05:28)
[2023-08-13] MEDS: MONTELUKAST NA 10 MG TABLET PO ONE (13:23)
[2023-08-14] MEDS: chlordiazePOXIDE HCL 10 MG CAPSULE PO SCH (05:38)
[2023-08-14 06:36] VITALS: RESP 16
[2023-08-14] MEDS: MONTELUKAST NA 10 MG TABLET PO SCH (09:03)
[2023-08-14 09:42] VITALS: BP 131/81; PULSE 90; TEMP 99.5
[2023-08-15] MEDS ORDERED: chlordiazePOXIDE HCL 10 MG CAPSULE PO ONE (05:00)
== END 2023-08-14 09:32 | disposition home or self-care (01) | DRG 774 ==
LOC: YASAS 04:21 → Y3N 05:00
PROVIDERS: ADMIT Allergy & Immunology; ATTEND Allergy & Immunology
PROC: HZ2ZZZZ Detoxification Services for Substance Abuse Treatment (ICD-10-PCS; principal; 2023-08-11)
DX: F10.230 Alcohol dependence with withdrawal, uncomplicated (principal); F14.20 Cocaine dependence, uncomplicated; F12.20 Cannabis dependence, uncomplicated; F17.210 Nicotine dependence, cigarettes, uncomplicated; F31.9 Bipolar disorder, unspecified; F19.24 Other psychoactive substance dependence with psychoactive substance-induced mood disorder; I10 Essential (primary) hypertension; J43.9 Emphysema, unspecified; J45.20 Mild intermittent asthma, uncomplicated; Z88.0 Allergy status to penicillin
CPT/HCPCS: 36415; 80053; 80305; 80307; 85027; 86780; Q0162

== ENCOUNTER 2024-01-13 16:15 | Inpatient (IN) | payer OTHER ==
[2024-01-13] MEDS ORDERED: ACETAMINOPHEN INJECTION 100 ML ONE (16:53)
[2024-01-13] MEDS ORDERED: chlordiazePOXIDE HCL 25 MG CAPSULE ONE ×2 (17:20→20:42)
[2024-01-13] MEDS ORDERED: ONDANSETRON 4 MG/2 ML VIAL ONE (17:20)
[2024-01-13] MEDS ORDERED: morphine SULFATE 4 MG/ML VIAL ONE (17:20)
[2024-01-13 17:21] LABS: BASO % 0.2 % (0-2.0); EOS % 2.3 % (0-4.5); HEMOGLOBIN 11.1 GM/dL (11.7-16.9); LYMPH % 28.6 % (8-40); MCH 29.2 pg (25.7-33.7); MCHC 33.6 g/dl (32.0-35.9); MEAN PLT VOLUME 6.4 fl (7.5-11.1); MONO % 7.4 % (3.8-10.2); NEUT % 61.5 % (42.8-82.8); PLATELET COUNT 374 10^3/uL (134-434); RBC 3.79 M/mm3 (4.00-5.60); RDW 14.2 % (11.9-15.9); WHITE BLOOD COUNT 13.7 K/mm3 (4.0-10.0)
[2024-01-13 17:27] LABS: INR 0.96 (0.83-1.09)
[2024-01-13] MEDS: morphine CARPU-JECT 4 MG/1 ML DISP.SYRIN IVPUSH ONE (17:33)
[2024-01-13] MEDS: ACETAMINOPHEN 1000 MG/100 ML BAG IVPB ONE ×2 (17:33→17:34)
[2024-01-13] MEDS: ONDANSETRON 4 MG/2 ML VIAL IVPUSH ONE (17:34)
[2024-01-13] MEDS: chlordiazePOXIDE HCL 25 MG CAPSULE PO ONE ×2 (17:34→20:47)
[2024-01-13 17:43] LABS: POTASSIUM 4.2 mmol/L (3.5-5.1)
[2024-01-13 17:44] LABS: ALBUMIN 3.7 g/dl (3.4-5.0); CALCIUM 8.9 mg/dL (8.5-10.1)
[2024-01-13 17:46] LABS: BLOOD UREA NITROGEN 4.7 mg/dL (7-18)
[2024-01-13 17:48] LABS: CREATININE 0.6 mg/dL (0.55-1.3)
[2024-01-13 17:49] LABS: BILIRUBIN,TOTAL 0.4 mg/dL (0.2-1); TOT PROT 7.6 g/dl (6.4-8.2)
[2024-01-13 18:17] LABS: EPI CELLS 3 /uL (0-25.1); HYALINE CASTS 0 /uL (0-3.1); PH,URINE 5.5 (5.0-8.0); URINE APPEARANCE CLOUDY; URINE BACTERIA >9,000 /uL (0-1359); URINE BILIRUBIN NEGATIVE (NEGATIVE); URINE COLOR YELLOW; URINE GLUCOSE (UA) NEGATIVE (NEGATIVE); URINE KETONE NEGATIVE (NEGATIVE); URINE LEUK ESTERASE 2+ (NEGATIVE); URINE NITRITE POSITIVE (NEGATIVE); URINE PROTEIN NEGATIVE (NEGATIVE); URINE RBC 12 /uL (0-23.9); URINE UROBILINOGEN 0.2 mg/dL (0.2-1.0); URINE WBC 204 /uL (0-25.8)
[2024-01-13 18:40] LABS: HIV INTERPRETATION NEGATIVE (NEGATIVE)
[2024-01-13] MEDS ORDERED: KETOROLAC TROMETHAMINE 15 MG/ML VIAL ONE (20:32)
[2024-01-13] MEDS: SODIUM CHLORIDE 0.9% 500 ML INFUS.BAG IV ONE (20:34)
[2024-01-13] MEDS: KETOROLAC TROMETHAMINE 15 MG/ML VIAL IVPUSH ONE (20:34)
[2024-01-13] MEDS ORDERED: NICOTINE 7 MG/24 HOURS TOPICAL PATCH TD ONE (20:42)
[2024-01-13] MEDS: NICOTINE 7 MG/24 HOURS TOPICAL PATCH TD ONE (20:47)
[2024-01-13] MEDS ORDERED: clonazePAM 0.5 MG TABLET PO PRN (23:25)
[2024-01-13] MEDS ORDERED: morphine CARPU-JECT 2 MG/1 ML DISP.SYRIN IVPUSH PRN (23:25)
[2024-01-13] MEDS ORDERED: ALBUTEROL SO4 HFA INHALER IH PRN (23:25)
[2024-01-14] MEDS: morphine SULFATE 4 MG/ML VIAL IVPUSH PRN (01:23)
[2024-01-14] MEDS: SODIUM CHLORIDE 1,000 ML IV SCH (01:23)
[2024-01-14] MEDS: chlordiazePOXIDE HCL 25 MG CAPSULE PO PRN ×2 (02:05→05:53)
[2024-01-14 02:48] VITALS: BP 110/75; PULSE 80; RESP 20; TEMP 97.5
[2024-01-14 03:40] VITALS: BMI 18.1
[2024-01-14] MEDS ORDERED: clonazePAM 0.5 MG TABLET PO PRN (05:50)
[2024-01-14 08:11] LABS: BASO % 1.3 % (0-2.0); EOS % 2.9 % (0-4.5); HEMATOCRIT 33.5 % (35.4-49); LYMPH % 24.2 % (8-40); MCH 29.2 pg (25.7-33.7); MCHC 32.8 g/dl (32.0-35.9); MEAN CELL VOLUME 89.1 fl (80-96); MEAN PLT VOLUME 7.2 fl (7.5-11.1); MONO % 9.6 % (3.8-10.2); PLATELET COUNT 339 10^3/uL (134-434); RBC 3.76 M/mm3 (4.00-5.60); RDW 14.6 % (11.9-15.9); WHITE BLOOD COUNT 9.6 K/mm3 (4.0-10.0)
[2024-01-14 08:30] LABS: POTASSIUM 4.2 mmol/L (3.5-5.1)
[2024-01-14 08:32] LABS: CALCIUM 8.6 mg/dL (8.5-10.1)
[2024-01-14 08:33] LABS: ALBUMIN 3.1 g/dl (3.4-5.0); BLOOD UREA NITROGEN 7.6 mg/dL (7-18)
[2024-01-14 08:35] LABS: CREATININE 0.5 mg/dL (0.55-1.3)
[2024-01-14 08:37] LABS: BILIRUBIN,TOTAL 0.7 mg/dL (0.2-1); TOT PROT 6.3 g/dl (6.4-8.2)
[2024-01-14] MEDS: PANTOPRAZOLE 40 MG TABLET PO SCH (09:09)
[2024-01-14] MEDS ORDERED: LEVOTHYROXINE SODIUM 100 MCG 5 ML VIAL IVPUSH SCH (10:00)
[2024-01-14] MEDS ORDERED: traZODone HCL 50 MG TABLET (FP) PO SCH (22:00)
== END 2024-01-14 10:31 | disposition left against medical advice (07) | DRG 501 ==
LOC: JER 16:15 → JERBED 20:51 → J6S 23:22
PROVIDERS: ADMIT Family Medicine; ATTEND Family Medicine
DX: N49.1 Inflammatory disorders of spermatic cord, tunica vaginalis and vas deferens (principal); E87.1 Hypo-osmolality and hyponatremia; I10 Essential (primary) hypertension; F10.239 Alcohol dependence with withdrawal, unspecified; F17.210 Nicotine dependence, cigarettes, uncomplicated; F31.9 Bipolar disorder, unspecified; I86.1 Scrotal varices; J44.9 Chronic obstructive pulmonary disease, unspecified; J45.909 Unspecified asthma, uncomplicated; M54.9 Dorsalgia, unspecified; N39.0 Urinary tract infection, site not specified; N43.3 Hydrocele, unspecified
CPT/HCPCS: 36415; 74177-TC; 76870-TC; 80053; 81003; 83605; 85025; 85610; 85730; 86803; 86850; 86900; 86901; 87086; 87186; 87389; 93005; 93010; 99285-25; J0131